=== PATIENT | female | born 1930 | race Caucasian/White ===

== ENCOUNTER 2016-07-11 20:16 | Observation (INO) | payer OTHER, MEDICARE ==
[~2016-07-11] VITALS: Ht 162.6 cm; Wt 121.1 kg
--- NOTE | 2016-07-11 21:26 | DIAGNOSTIC IMAGING REPORT ---
PROCEDURE: XR SHOULDER 2 OR MORE VW-RIGHT INDICATION: Fall injury, initial encounter TECHNIQUE: Two views COMPARISON: None. FINDINGS: Dislocation of the humeral head anteriorly and inferiorly with Hill-Sachs deformity. No evidence of a fracture. Moderate AC joint degenerative changes. IMPRESSION: 1. Right glenohumeral joint anterior dislocation with Hill-Sachs deformity
--- NOTE | 2016-07-11 22:44 | DIAGNOSTIC IMAGING REPORT ---
PROCEDURE: XR SHOULDER 2 OR MORE VW-RIGHT INDICATION: POST REDUCTION TECHNIQUE: Two views COMPARISON: Right shoulder x-ray 07/11/2016 FINDINGS: No change in the right glenohumeral humeral joint anterior dislocation with Hill-Sachs deformity . Questionable small avulsion fracture of the glenoid versus artifact. Moderate AC joint degenerative changes. IMPRESSION: 1. No change in the right glenohumeral joint anterior dislocation with Hill-Sachs deformity 2. Glenoid avulsion fracture versus artifact
--- NOTE | 2016-07-11 23:14 | DIAGNOSTIC IMAGING REPORT ---
PROCEDURE: XR SHOULDER 2 OR MORE VW-RIGHT INDICATION: 2ND POST REDUCTION TECHNIQUE: Two-view COMPARISON: Right shoulder x-ray 07/11/2016 FINDINGS: Reduced right shoulder anterior dislocation with mild inferior subluxation of the humeral head. Hill-Sachs deformity. Moderate AC joint degenerative changes. IMPRESSION: 1. Reduced anterior right shoulder dislocation with mild residual subluxation 2. Hill-Sachs deformity
--- NOTE | 2016-07-12 00:03 | DIAGNOSTIC IMAGING REPORT ---
PROCEDURE: CT UPPER EXT W/O CONT - RIGHT INDICATION: Recent shoulder dislocation TECHNIQUE: Axial scans with coronal and sagittal re-formations COMPARISON: Right shoulder x-rays 07/11/2016 FINDINGS: Reduced right glenohumeral joint shoulder dislocation with Hill-Sachs deformity. [place] fracture of the glenoid. A 5 mm avulsion fracture of the glenoid posteriorly, probably chronic. Moderate glenohumeral and AC joint degenerative changes. Soft tissues are unremarkable. IMPRESSION: 1. Reduced right glenohumeral joint dislocation with Hill-Sachs deformity 2. [place] fracture of the glenoid and 5 mm a avulsion fracture of the glenoid posteriorly, probably chronic. 3. Moderate AC and glenohumeral joint degenerative changes. 4. Results discussed with Dr. Aldrich
--- NOTE | 2016-07-12 01:58 | Progress Note ---
Subjective General Medical Consultation Patient Name: Va Pisano Admission Date: July 12, 2016 Primary Care Provider: Varghese Kimbrough M.D. Attending Physician: Clemente Lemos M.D. Consulting Physician: Godfrey Casey M.D. SUBJECTIVE Historian: Emergency department records, patient Reliability: Fair Chief Complaint: Fall, right shoulder injury History of Present Illness: The patient is a 85-year-old white female with a significant past medical history of hypertension, type 2 diabetes mellitus, hyperlipidemia, who presented to [facility] emergency room on the day prior to admission secondary to fall with injury to right side/shoulder. [facility] ER evaluation was consistent with fall with right-sided trauma and associated right shoulder dislocation. The patient underwent reduction of the right shoulder dislocation in the emergency department and was subsequently admitted by Dr. Gibran Benjamin for further evaluation and treatment. Hospitalist team was consulted for management of diabetes mellitus, hypertension, hyperlipidemia. PAST MEDICAL HISTORY Illnesses: 1. Hypertension 2. Hyperlipidemia 3. Diabetes mellitus type 2 4. Diabetic neuropathy Allergies: 1. No Known Drug Allergies Medications: 1. Atenolol 50 mg 1 by mouth daily 2. Lisinopril 20 mg by mouth twice a day 3. Glimepiride 2 mg by mouth daily 4. Lyrica 150 mg by mouth twice a day 5. Zocor 20 mg by mouth daily 6. Cozaar 100 mg by mouth daily Surgery: 1. Tonsillectomy Injuries: 1. No significant Hospitalizations: 1. For above surgery and medical problems Physical Exam Vital Signs / I&Os Vital Signs Date Time Temp Pulse Resp B/P Pulse O2 O2 Flow FiO2 Ox Delivery Rate 07/115 2.0 07/11 2204 2.0 General Appearance Alert, Oriented X3, Cooperative, No acute distress Lungs Clear to auscultation Cardiovascular Regular rate and rhythm, Normal S1 and S2 Abdomen Normal bowel sounds, Soft, No tenderness Extremities pain with right shoulder movement. Psych/Mental Status Mental status normal, Mood normal LAB Results Laboratory Tests 07/11 07/11 07/11 2341 5 2115 Chemistry Plasma Sodium (136 - 145 mmol/L) 143 Plasma Potassium (3.5 - 5.1 mmol/L) 4.5 Plasma Chloride (98 - 107 mmol/L) 109 CO2 (Enzymatic) (21 - 32 mmol/L) 28 BUN (7 - 18 mg/dL) 41 Creatinine (0.6 - 1.3 mg/dL) 1.6 Est GFR ( Amer) (mL/min) 39.65 Est GFR (Non-Af Amer) (mL/min) 32.72 Glucose (70 - 110 mg/dL) 247 Plasma Calcium (8.5 - 10.1 mg/dL) 8.7 Total Bilirubin (0.0 - 1.0 mg/dL) 0.2 AST (15 - 37 U/L) 15 ALT (12 - 78 U/L) 24 Alkaline Phosphatase (46 - 116 U/L) 70 Creatine Kinase (24 - 260 U/L) 88 Troponin (0.00 - 1.5 ng/mL) <0.05 B-Natriuretic Peptide (5 - 100 pg/ml) 87.6 Total Protein (6.4 - 8.2 g/dL) 7.0 Albumin (3.3 - 5.0 g/dL) 3.3 Hematology WBC (4.5 - 11.5 K/uL) 14.5 RBC (4.00 - 5.20 M/uL) 4.40 Hgb (12.0 - 16.0 gm/dL) 12.2 Hct (36.0 - 46.0 %) 38.9 MCV (80 - 100 fL) 88 MCH (26 - 34 pg) 28 RDW (11.6 - 14.8 %) 14.7 Gran % (53 - 90) 82.6 Lymph % (Auto) (25 - 40 %) 15.2 [place] % (Auto) (3 - 14 %) 2.2 Plt Count, EDTA (150 - 400 K/uL) 168 PUBS MCHC (31 - 37 g/dL) [address] scan-right shoulder IMPRESSION: 1. Reduced right glenohumeral joint dislocation with Hill-Sachs deformity 2. [place] fracture of the glenoid and 5 mm a avulsion fracture of the glenoid posteriorly, probably chronic. 3. Moderate AC and glenohumeral joint degenerative changes. 4. Results discussed with Dr. Aldrich Dictated by: PATRICIA VERNON MD D: KEEGAN;07/12/16 0002 Assessment and Plan Problem List 1. Shoulder dislocation Status Acute Onset Date Unknown Plan -Follow per orthopedics -Status post reduction confirmed with CT scan 2. Diabetes mellitus Status Chronic Onset Date Unknown Plan -Patient with history of diabetes mellitus -Blood sugar mildly elevated. -Insulin sliding scale -Monitor -Check hemoglobin A1c in a.m. -Placed back on oral medications when taking well orally 3. Hypertension Status Chronic Onset Date Unknown Plan -Patient with history of hypertension -Continue outpatient medical regimen -Low-salt diet -Monitor 4. Hyperlipidemia Status Chronic Onset Date Unknown Plan -Patient with history of hyperlipidemia -Continue statin therapy with Lipitor 20 mg by mouth daily -Placed back on Zocor on discharge -Outpatient follow up with PCP Current status: Fair, improved Anticipated discharge date: Anticipated discharge per orthopedics Anticipated discharge placement: Home Patient care time: Time spent in chart review, patient interview, physical exam, CPOE, and care documentation: 45 minutes Visit to patient today: 1 Complexity of care: Moderate E&M Codes Inpatient Consult: EPF-Rodríguez/[id number] E&M Codes Inpatient Consult: EPF-[id number]
[2016-07-12] MEDS ORDERED: ATENOLOL50 MG PO (02:29)
[2016-07-12] MEDS ORDERED: AMARYL1 MG PO (02:29)
[2016-07-12] MEDS ORDERED: LYRICA150 MG PO (02:30)
[2016-07-12] MEDS ORDERED: LISINOPRIL10 MG PO (02:30)
[2016-07-12] MEDS ORDERED: ATORVASTATIN CA10 MG PO (02:31)
[2016-07-12] MEDS ORDERED: COZAAR25 MG PO (02:31)
[2016-07-12 02:59] VITALS: BP 122/52
--- NOTE | 2016-07-12 03:16 | ED NURSING NOTES ---
Clinical Report - Nurses [facility] [address] [place] [address] 07/11/2016 20:17 [facility]: [id number] TRIAGE Triage time 2004. Acuity: LEVEL 3. Chief Complaint: FALL (slipped on wet floor in bathroom c/o right shoulder pain , and pain to buttocks from fall). 20:05. MELANIE COMA SCORE: Harris Coma Scale: 15- eyes open spontaneously (4); best verbal response- oriented x 4 (5); best motor response- obeys commands (6). --20:24 Jazmine Segal R.N. 20:05 07/11/16. BP: 151/56. HR: 116. RR: 26. O2 saturation: 99%. Temp: 98.1 F. Pain level now: 03/09. --20:24 Jazmine Segal R.N. Weight: 113.3 kg stated. Height/Length: 64 inches Per Patient. BMI: 42.9. --20:19 Jazmine Segal R.N. Medications Atenolol Oral 50 mg, daily. Glimepiride Oral (Tablet 2 mg) 1 tablet, daily. Lisinopril Oral (Tablet 20 mg) 1 tablet, 2x a day. Lyrica Oral (Capsule 150 mg) 1 capsule, 2xdaily. --20:27 Jazmine Segal R.N. Atorvastatin Calcium Oral. Losartan Potassium Oral. --20:28 Jazmine Segal R.N. Allergies No Known Drug Allergy. --20:27 Jazmine Segal R.N. History Arrived by EMS. Historian: patient. Accompanied by spouse. [facility] Location of injuries: right shoulder. This occurred (1800). ( also fell about 3 days ago). No loss of consciousness. PAST MEDICAL HX: Diabetes mellitus. Hypertension. SURGERY HX: Right and left knee surgery. Knee prosthesis. SOCIAL HX: Never smoker. No alcohol use. --20:24 Jazmine Segal R.N. Interventions ID band on patient. To treatment room. --20:24 Jazmine Segal R.N. PHYSICAL ASSESSMENT 20:05. To room via stretcher. GENERAL / NEURO / PSYCH: Alert. Oriented X 4. Appears in distress. RESPIRATORY: Respirations not labored. CVS: Capillary refill less than 2 seconds. GI / : Abdomen soft. EXTREMITIES: Limited ROM present. Right shoulder: tenderness and swelling. Limited ROM. SKIN: Skin is warm and dry. BACK: Right buttock: tenderness. --20:24 Jazmine Segal R.N. NURSING PROGRESS NOTES 20:05. Cold pack applied. Extremity elevated. Reassurance given. Patient identifiers checked. Call light placed in reach. Side rails up. Bed placed in lowest position. Patient ready for evaluation- chart flagged. --20:23 Jazmine Segal R.N. 20:32. Patient transported to radiology by stretcher with tech. --20:37 Jazmine Segal R.N. 20:45. Patient returned from radiology by stretcher with tech. --21:23 Jazmine Segal R.N. 21:10 07/11/2016 Site #1 started via IV in the left antecubital space with an 20g angiocath; one attempt. Blood drawn: rainbow set. Labeled in the presence of the patient and sent to the lab. Saline lock flushed with 10 mL saline (done by KELLY Moseley). --21:24 Jazmine Segal R.N. 21:12 07/11/2016 Zofran (Ondansetron HCl) IVP 4 mg given over 1 minute(s) via site #1. IV patency established. IV site checked: no pain, redness, or swelling. IV flushed thoroughly pre- and post-medication administration. IVP given by RN. --21:26 Jazmine Segal R.N. 21:13 07/11/2016 Dilaudid (HYDROmorphone HCl PF) IVP 0.5 mg given over 1 minute(s) via site #1. IV patency established. IV site checked: no pain, redness, or swelling. IV flushed thoroughly pre- and post-medication administration. IVP given by RN. --21:25 Jazmine Segal R.N. 2120 pt vomited 300cc food product emesis. , additional nausea meds given . Dr. Aldrich in room to examine shoulder. --21:40 Jazmine Segal R.N. 21:23 07/11/2016 PHENERGAN (Promethazine HCl) IVP 12.5 mg given over 1 minute(s) via site #1. IV patency established. IV site checked: no pain, redness, or swelling. IV flushed thoroughly pre- and post-medication administration. IVP given by RN. --21:40 Jazmine Segal R.N. 22:00 07/11/16. BP: 106/33. HR: 51. RR: 14. O2 saturation: 97% on nasal cannula at 4 liters/minute. Temp: deferred. Pain level now: cannot qualify. --22:25 Jazmine Segal R.N. 22:05 07/11/16. BP: 96/63. HR: 47. RR: 14. O2 saturation: 98% on nasal cannula at 4 liters/minute. Pain level now: cannot qualify. --22:30 Jazmine Segal R.N. 22:15. ( daughter at bedside. waiting on x-ray for post-reduction films). --22:31 Jazmine Segal R.N. 22:20 07/11/16. BP: 107/33. HR: 51. RR: 14. O2 saturation: 97% on nasal cannula at 4 liters/minute. Temp: deferred. Pain level now: cannot qualify. Additional comments: pt still sitting upright with eyes closed, will respond to verbal stimuli , answers questions. asking for water . --22:32 Jazmine Segal R.N. 22:23. ( Port x-ray here for post reduction film). --22:33 Jazmine Segal R.N. 22:30. Care transferred and report given (KELLY Tam). --22:33 Jazmine Segal R.N. 23:30 07/11/16. Patient transported to CT by stretcher with tech. --23:41 Inderbitzen, Bárbara, R.N. 23:42 07/11/16. ( Monitored sedation procedure completed x 2, 1st by ED ATHIR Lucero, 2nd by Dr Alva, anesthesia. Please see appropriate flowsheets and anesthesia record for vital data.). --23:42 Bárbara Cox R.N. 23:58 07/11/16. Patient returned from CT by stretcher with nurse. --23:58 Bárbara Cox R.N. EKG time: (33). EKG was ordered, performed by a tech and shown to the ED physician. --00:36 Natalie Sparks 01:02 07/12/16. Care transferred and report given (to TAHIR Broussard). --01:02 Bárbara Cox R.N. ( PATIENT GIVEN H+P FORM). --01:23 Pato Garcia, ER College Rec[employer]iter. Procedural Sedation Flowsheet 21:50. Diagnosis: dislocated joint, left shoulder. Procedure: reduction of orthopedic injury. Procedure performed by ED physician and assisted by one nurse and PA (Meet POWERS, assit by Dianne SOLIMAN). Allergies/reactions: and NKDA. ASA classification: 2 - patient with mild systemic disease. Patient / family education: explanation of procedure. Preparation: ID band on patient and consent obtained per patient; airway equipment, suction equipment, emergency cart and reversal agents at bedside; pulse oximeter, ekg monitor and NIBP placed on patient. Patient, with head of bed elevated. Time-out completed immediately before the procedure. (2149) Procedure start time: 2150 Procedure end time: 2152 Patient tolerated procedure well. (ERMD in to reduce shoulder, had pulled up fentanyl, but did not need to give this med since pt was very sleepy after phenergan.). --22:19 Jazmine Segal R.N. <<ALTA ENTRY-- 22:10 07/11/16. BP: 151/56. HR: 49. RR: 14. O2 saturation: 94% on nasal cannula at 2 liters/minute. Temp: deferred. Pain level now: 04/08. --22:19 Jazmine Segal R.N. --END STRIKE>> Wrong Value. --22:22 Jazmine Segal R.N. DISPOSITION / DISCHARGE Report was given to a nurse via a phone call. Report included patient's care, treatment, medications, reviewed medication reconcilliation, and condition (including any recent changes or anticipated changes). All questions were answered. Report was acknowledged. --02:22 Bobo Mazariegos R.N. ( sling placed). --02:24 Bobo Mazariegos R.N. 02:23 07/12/16. BP: 117/65. HR: 60. RR: 18. O2 saturation: 100%. Temp: 97.8 F. Pain level now 0/10. --02:24 Bobo Mazariegos R.N. Locked/Released at 07/12/2016 3:33 by Bobo Mazariegos R.N.
--- NOTE | 2016-07-12 03:16 | ED NURSING NOTES ---
Clinical Report - Nurses [facility] [address] [place] [address] 07/11/2016 20:17 [id number] Triage time 2004. Acuity: LEVEL 3. Chief Complaint: FALL (slipped on wet floor in bathroom c/o right shoulder pain , and pain to buttocks from fall). 20:05. MELANIE COMA SCORE: Renick Coma Scale: 15- eyes open spontaneously (4); best verbal response- oriented x 4 (5); best motor response- obeys commands (6). --20:24 Jazmine Segal R.N. 20:05 07/11/16. BP: 151/56. HR: 116. RR: 26. O2 saturation: 99%. Temp: 98.1 F. Pain level now: 03/09. --20:24 Jazmine Segal R.N. Weight: 113.3 kg stated. Height/Length: 64 inches Per Patient. BMI: 42.9. --20:19 Jazmine Segal R.N. Medications Atenolol Oral 50 mg, daily. Glimepiride Oral (Tablet 2 mg) 1 tablet, daily. Lisinopril Oral (Tablet 20 mg) 1 tablet, 2x a day. Lyrica Oral (Capsule 150 mg) 1 capsule, 2xdaily. --20:27 Jazmine Segal R.N. Atorvastatin Calcium Oral. Losartan Potassium Oral. --20:28 Jazmine Segal R.N. Allergies No Known Drug Allergy. --20:27 Jazmine Segal R.N. History Arrived by EMS. Historian: patient. Accompanied by spouse. [facility] Location of injuries: right shoulder. This occurred (1800). ( also fell about 3 days ago). No loss of consciousness. PAST MEDICAL HX: Diabetes mellitus. Hypertension. SURGERY HX: Right and left knee surgery. Knee prosthesis. SOCIAL HX: Never smoker. No alcohol use. --20:24 Jazmine Segal R.N. Interventions ID band on patient. To treatment room. --20:24 Jazmine Segal R.N. PHYSICAL ASSESSMENT 20:05. To room via stretcher. GENERAL / NEURO / PSYCH: Alert. Oriented X 4. Appears in distress. RESPIRATORY: Respirations not labored. CVS: Capillary refill less than 2 seconds. GI / : Abdomen soft. EXTREMITIES: Limited ROM present. Right shoulder: tenderness and swelling. Limited ROM. SKIN: Skin is warm and dry. BACK: Right buttock: tenderness. --20:24 Jazmine Segal R.N. NURSING PROGRESS NOTES 20:05. Cold pack applied. Extremity elevated. Reassurance given. Patient identifiers checked. Call light placed in reach. Side rails up. Bed placed in lowest position. Patient ready for evaluation- chart flagged. --20:23 Jazmine Segal R.N. 20:32. Patient transported to radiology by stretcher with tech. --20:37 Jazmine Segal R.N. 20:45. Patient returned from radiology by stretcher with tech. --21:23 Jazmine Segal R.N. 21:10 07/11/2016 Site #1 started via IV in the left antecubital space with an 20g angiocath; one attempt. Blood drawn: rainbow set. Labeled in the presence of the patient and sent to the lab. Saline lock flushed with 10 mL saline (done by KELLY Moseley). --21:24 Jazmine Segal R.N. 21:12 07/11/2016 Zofran (Ondansetron HCl) IVP 4 mg given over 1 minute(s) via site #1. IV patency established. IV site checked: no pain, redness, or swelling. IV flushed thoroughly pre- and post-medication administration. IVP given by RN. --21:26 Jazmine Segal R.N. 21:13 07/11/2016 Dilaudid (HYDROmorphone HCl PF) IVP 0.5 mg given over 1 minute(s) via site #1. IV patency established. IV site checked: no pain, redness, or swelling. IV flushed thoroughly pre- and post-medication administration. IVP given by RN. --21:25 Jazmine Segal R.N. 2120 pt vomited 300cc food product emesis. , additional nausea meds given . Dr. Aldrich in room to examine shoulder. --21:40 Jazmine Segal R.N. 21:23 07/11/2016 PHENERGAN (Promethazine HCl) IVP 12.5 mg given over 1 minute(s) via site #1. IV patency established. IV site checked: no pain, redness, or swelling. IV flushed thoroughly pre- and post-medication administration. IVP given by RN. --21:40 Jazmine Segal R.N. 22:00 07/11/16. BP: 106/33. HR: 51. RR: 14. O2 saturation: 97% on nasal cannula at 4 liters/minute. Temp: deferred. Pain level now: cannot qualify. --22:25 Jazmine Segal R.N. 22:05 07/11/16. BP: 96/63. HR: 47. RR: 14. O2 saturation: 98% on nasal cannula at 4 liters/minute. Pain level now: cannot qualify. --22:30 Jazmine Segal R.N. 22:15. ( daughter at bedside. waiting on x-ray for post-reduction films). --22:31 Jazmine Segal R.N. 22:20 07/11/16. BP: 107/33. HR: 51. RR: 14. O2 saturation: 97% on nasal cannula at 4 liters/minute. Temp: deferred. Pain level now: cannot qualify. Additional comments: pt still sitting upright with eyes closed, will respond to verbal stimuli , answers questions. asking for water . --22:32 Jazmine Segal R.N. 22:23. ( Port x-ray here for post reduction film). --22:33 Jazmine Segal R.N. 22:30. Care transferred and report given (KELLY Tam). --22:33 Jazmine Segal R.N. 23:30 07/11/16. Patient transported to CT by stretcher with tech. --23:41 Inderbitzen, Bárbara, R.N. 23:42 07/11/16. ( Monitored sedation procedure completed x 2, 1st by ED TAHIR Lucero, 2nd by Dr Alva, anesthesia. Please see appropriate flowsheets and anesthesia record for vital data.). --23:42 Bárbara Cox R.N. 23:58 07/11/16. Patient returned from CT by stretcher with nurse. --23:58 Bárbara Cox R.N. EKG time: (33). EKG was ordered, performed by a tech and shown to the ED physician. --00:36 Natalie Sparks 01:02 07/12/16. Care transferred and report given (to TAHIR Broussard). --01:02 Bárbara Cox R.N. ( PATIENT GIVEN H+P FORM). --01:23 Pato Garcia, ER Template Checker. Procedural Sedation Flowsheet 21:50. Diagnosis: dislocated joint, left shoulder. Procedure: reduction of orthopedic injury. Procedure performed by ED physician and assisted by one nurse and PA (Meet POWERS, assit by Dianne SOLIMAN). Allergies/reactions: and NKDA. ASA classification: 2 - patient with mild systemic disease. Patient / family education: explanation of procedure. Preparation: ID band on patient and consent obtained per patient; airway equipment, suction equipment, emergency cart and reversal agents at bedside; pulse oximeter, classroom monitor and NIBP placed on patient. Patient, with head of bed elevated. Time-out completed immediately before the procedure. (2149) Procedure start time: 2150 Procedure end time: 2152 Patient tolerated procedure well. (ERMD in to reduce shoulder, had pulled up fentanyl, but did not need to give this med since pt was very sleepy after phenergan.). --22:19 Jazmine Segal R.N. <<ALTA ENTRY-- 22:10 07/11/16. BP: 151/56. HR: 49. RR: 14. O2 saturation: 94% on nasal cannula at 2 liters/minute. Temp: deferred. Pain level now: 04/08. --22:19 Jazmine Segal R.N. --END STRIKE>> Wrong Value. --22:22 Jazmine Segal R.N. DISPOSITION / DISCHARGE Report was given to a nurse via a phone call. Report included patient's care, treatment, medications, reviewed medication reconcilliation, and condition (including any recent changes or anticipated changes). All questions were answered. Report was acknowledged. --02:22 Bobo Mazariegos R.N. ( sling placed). --02:24 Bobo Mazariegos R.N. 02:23 07/12/16. BP: 117/65. HR: 60. RR: 18. O2 saturation: 100%. Temp: 97.8 F. Pain level now 0/10. --02:24 Bobo Mazariegos R.N. Locked/Released at 07/12/2016 3:33 by Bobo Mazariegos R.N.
--- NOTE | 2016-07-12 03:16 | ED ORDER SUMMARY ---
..... Patient: GASTON GENAO OrderSheet [facility] VisitID: [id number] [place] [address] 85y, F Registration Date/Time: 07/11/2016 ORDER SHEET Weight: 113.3 kg (stated) Allergies: No Known Drug Allergy GENERAL ORDERS: Shoulder 2V or more Bilat Urgent (20:22 07/11/2016 DDean R.N. per protocol) (Ack 20:28 TBergley) (Cancelled: Other20:36 DDean R.N.) Shoulder 2V or more Right Urgent (20:36 07/11/2016 DDean R.N. per protocol) (Ack 20:38 TBergley) (21:23 MCampbell) Shoulder 2V or more Right Urgent (21:52 07/11/2016 CHagerty [facility] Behavioral Technician verbal order read back to EKoroleva P.A.-C) (Ack 21:55 TBergley) (22:34 DDean R.N.) Shoulder 2V or more Right Urgent (22:53 07/11/2016 CH[facility]ty ER Behavioral Technician verbal order read back to EKoroleva P.A.-C) (Ack 22:58 CHagerty ER Behavioral Technician) (23:57 RFay) CT Upp Ext wo Cont Right (Shoulder) Urgent (23:18 07/11/2016 CHagerty ER Behavioral Technician verbal order read back to Jasper GREENBERG) (Ack 23:20 CHagerty ER Behavioral Technician) (23:57 RFay) CBC w Diff Urgent (23:41 07/11/2016 EKoroleva P.A.-C) (Ack 23:43 CHagerty ER Behavioral Technician) (23:43 CHagerty ER Behavioral Technician) CMP Urgent (23:41 07/11/2016 EKoroleva P.A.-C) (Ack 23:43 CHagerty ER Behavioral Technician) (23:44 CHagerty ER Behavioral Technician) CPK Urgent (23:49 07/11/2016 Jasper GREENBERG) (Ack 23:51 CHagerty ER Behavioral Technician) (23:51 CHagerty ER Behavioral Technician) Troponin-I Urgent (23:49 07/11/2016 Jasper GREENBERG) (Ack 23:51 CHagerty ER Behavioral Technician) (23:51 CHagerty ER Behavioral Technician) UA-Culture if indicated Urgent (23:49 07/11/2016 Jasper GREENBERG) (Ack 23:51 CHagerty ER Behavioral Technician) (3:05 CHagerty ER Behavioral Technician) EKG - ER Stat (23:49 07/11/2016 Jasper GREENBERG) (Ack 23:51 CHagerty ER Behavioral Technician) (0:37 Benegekimapatrizia) - (SLING) (02:16 07/12/2016 Jasper GREENBERG) (3:05 CHagerty ER Behavioral Technician) MEDICATION ORDERS: Phenergan IV 12.5 mg (HIGH ALERT MEDICATION, NOW) (21:27 07/11/2016 EKoroleva P.A.-C) (21:40 DDean R.N.) IV FLUIDS: Dilaudid IV 0.5 mg (HIGH ALERT MEDICATION, NOW) (21:00 07/11/2016 EKoroleva P.A.-C) (21:25 DDean R.N.) IV Saline Lock (21:00 07/11/2016 EKoroleva P.A.-C) (21:25 DDean R.N.) Zofran IV 4 mg (NOW) (21:25 07/11/2016 DDean R.N. per protocol) (21:26 DDean R.N.) Fentanyl IV 50 mcg (may repeat prn procedure additional 50 mcg x 1 , total 100 mcg) (21:37 07/11/2016 EKoroleva P.A.-C) (Ack 21:40 DDean R.N.) (Cancelled: Other- pt didn't need, was sleepy after phenergan 22:12 DDean R.N.) Fentanyl IV 100 mcg (will be administered as needed during procedure) (22:34 07/11/2016 EKoroleva P.A.-C) (Cancelled: Physician Order23:24 Simbazen R.N.) ORDER SHEET NOTES: [Electronically signed by Bobo Mazariegos R.N. (03:33 07/12/2016)] [Electronically signed by Meet Aldrich MD (05:49 07/12/2016)] [Electronically signed by Rina Carranza P.A.-C (14:21 07/15/2016)] [Electronically locked/signed by Bobo Mazariegos R.N. (03:33 07/12/2016)]
--- NOTE | 2016-07-12 03:16 | ED CLINICAL REPORT ---
Clinical Report - Physicians/Mid Levels [facility] [address] [place] [address] 07/11/2016 20:17 Patient: GASTON GENAO Time Seen: 20:41 Jul 11 2016. Arrived- By private vehicle. Historian- patient. HISTORY OF PRESENT ILLNESS Location of injuries- right shoulder. Chief Complaint: FALL. The injury occurred just prior to arrival. Occurred at home. ( See also Dianne Teran's chart). Fell. No fainting episodes. The patient complains of severe pain. No blow to the head, neck pain or loss of consciousness. Not dazed. (Just prior to arrival slipped on wet floor in the bathroom fall in her right shoulder. She denies any shortness of breath or chest pain, or any preceding symptoms, denied any headache or dizziness. Denies any headache or neck pain or back pain post-incident. Reports pain with movement of shoulder, unable to do so, no paresthesias.). REVIEW OF SYSTEMS No loss of vision, hearing loss or abdominal pain. All systems otherwise negative, except as recorded above. PAST HISTORY Illness: DM, Hypertension, Dyslipidemia. SURGERY Right and left knee surgery. Knee prosthesis. Problems: Hypertension. Diabetes Mellitus. Abrasion(s). Contusion. Tetanus Status. Immunizations. Hypercholesterolemia. Additional Surgeries: Knee Prosthesis. Knee Surgery. Tonsillectomy. Medications: Atorvastatin Calcium Oral. Losartan Potassium Oral. Atenolol Oral 50 mg, daily. Glimepiride Oral (Tablet 2 mg) 1 tablet, daily. Lisinopril Oral (Tablet 20 mg) 1 tablet, 2x a day. Lyrica Oral (Capsule 150 mg) 1 capsule, 2xdaily. Allergies: No Known Drug Allergy. SOCIAL HISTORY Never smoker. No alcohol use or drug use. ADDITIONAL NOTES The nursing notes have been reviewed. PHYSICAL EXAM Vital Signs: 07/11/2016 20:05 BP: 151/56. HR: 116. RR: 26. O2 saturation: 99%. Temp: 98.1 F. Pain level now: 9/10. Appearance: Alert. No acute distress. No backboard or C-collar. Head: Head non-tender. No swelling of head. Eyes: Pupils equal, round and reactive to light. EOM intact. No abnormal funduscopic findings. No ocular injury. Neck: No decreased ROM in the neck. Non-tender. No vertebral tenderness. Posterior neck: No tenderness or laceration. CVS: Heart sounds normal. Pulses normal. Respiratory: Breath sounds normal. Chest nontender. Abdomen: No visible injury. Soft. Bowel sounds normal. No abdominal tenderness. Back: No tenderness. ROM normal. No tenderness or vertebral point tenderness. Skin: Skin intact. Skin warm. Extremities: Right shoulder: deformity consistent with a shoulder dislocation and moderate tenderness located in the anterior aspect of the shoulder. No abrasion, ecchymosis or puncture wound. Right elbow. No tenderness or swelling. Right wrist. No tenderness or swelling. Pelvis stable. Neuro: [place] Coma Scale: 15- eyes open spontaneously (4); best verbal response- oriented x 3 (5); best motor response- obeys commands (6). Oriented X 3. LABS, X-RAYS, AND EKG EKG: No acute process. Rate: 55. Normal P waves. Normal KAUR. Normal QRS complex. Normal axis. T wave inversion in lead III. Rt Shoulder X-ray: (First: IMPRESSION: 1. Right glenohumeral joint anterior dislocation with Hill-Sachs deformity Electronically Final signed by:Junaid Newman MD 07/11/2016 9:26:22 PM Second IMPRESSION: 1. No change in the right glenohumeral joint anterior dislocation with Hill-Sachs deformity 2. Glenoid avulsion fracture versus artifact Electronically Final signed by:Junaid Newman MD 07/11/2016 10:44:31 PM). Laboratory Tests: CBC w Diff: (JHOANA: 07/11/2016 21:15) ( MsgRcvd 07/11/2016 23:47) Final results Test Result Flag Units (Reference) WHITE BLOOD COUNT 14.5 H K/uL (4.5-11.5) RED BLOOD COUNT 4.40 M/uL (4.00-5.20) HEMOGLOBIN 12.2 gm/dL (12.0-16.0) HEMATOCRIT 38.9 % (36.0-46.0) MEAN CELL VOLUME 88 fL (80-100) MEAN CORPUSCULAR HGB 28 pg (26-34) MEAN CORPUSCULAR HGB CONC 31 g/dL (31-37) RED CELL DISTRIBUTION WIDTH 14.7 % (11.6-14.8) PLATELET COUNT 168 K/uL (150-400) LYMPH % 15.2 L % (25-40) MONO % 2.2 L % (3-14) GRANULOCYTE % 82.6 (53-90) BNP: (JHOANA: 07/11/2016 23:41) ( [facility] 07/12/2016 01:26) Final results Test Result Flag Units (Reference) B-TYPE NATRIURETIC PEPTIDE 87.6 pg/ml (5-100) CPK: (JHOANA: 07/11/2016 21:15) ( [facility] 07/12/2016 00:47) Final results Test Result Flag Units (Reference) CPK 88 U/L (24-260) TROPONIN I <0.05 ng/mL (0.00-1.5) TROPONIN REFERENCE RANGE:<0.1 NEGATIVE0.1-1.5 INDETERMINANT>1.5 POSITIVE CMP: (JHOANA: 07/11/2016 21:15) ( [facility] 07/11/2016 23:57) Final results Test Result Flag Units (Reference) GLUCOSE 247 H mg/dL (70-110) BUN 41 H mg/dL (7-18) CREATININE 1.6 H mg/dL (0.6-1.3) Estimated GFR 32.72 mL/min Estimated GFR- 39.65 mL/min Note: Persistent reduction over 3 months in eGFR<60 mL/min/1.73 m2 defines CKD. Patients with eGFR values>=60 mL/min/1.73 m2 may also have CKD if evidence ofpersistent proteinuria. Additional information may be foundat www.kidney.org. SODIUM 143 mmol/L (136-145) POTASSIUM 4.5 mmol/L (3.5-5.1) CHLORIDE 109 H mmol/L (98-107) CARBON DIOXIDE 28 mmol/L (21-32) CALCIUM 8.7 mg/dL (8.5-10.1) TOTAL PROTEIN 7.0 g/dL (6.4-8.2) ALBUMIN 3.3 g/dL (3.3-5.0) BILIRUBIN, TOTAL 0.2 mg/dL (0.0-1.0) ALKALINE PHOSPHATASE 70 U/L (46-116) AST (SGOT) 15 U/L (15-37) ALT (SGPT) 24 U/L (12-78) . Note - Tests: (PROCEDURE: CT UPPER EXT W/O CONT - RIGHT INDICATION: Recent shoulder dislocation TECHNIQUE: Axial scans with coronal and sagittal re-formations COMPARISON: Right shoulder x-rays 07/11/2016 FINDINGS: Reduced right glenohumeral joint shoulder dislocation with Hill-Sachs deformity. [place] fracture of the glenoid. A 5 mm avulsion fracture of the glenoid posteriorly, probably chronic. Moderate glenohumeral and AC joint degenerative changes. Soft tissues are unremarkable. IMPRESSION: 1. Reduced right glenohumeral joint dislocation with Hill-Sachs deformity 2. [place] fracture of the glenoid and 5 mm a avulsion fracture of the glenoid posteriorly, probably chronic. 3. Moderate AC and glenohumeral joint degenerative changes. 4. Results discussed with Dr. Aldrich Electronically Final signed by:Junaid Newman MD 07/12/2016 12:03:15 AM). PROGRESS AND PROCEDURES Reduction of Dislocated Shoulder: The right shoulder was reduced using traction-countertraction technique and scapular manipulation technique. Reassessed post-procedure. Neurovascular status intact. Deltoid sensation normal. Exam indicated reduction. Shoulder immobilizer applied. (Initial reduction attempt with Dilaudid and phenergan using scapular rotation technique. This seemed successful but post procedure radiography showed persistent dislocation. Second attempt with anesthesia by Dr Alva using ketamine and propofol was done using traction and counter traction technique. The third films showed reduction with some subluxation.). Course of Care: pt given dilauidid 0.5 mg, and phenergan 12.5 mg iv, and was sleepy, thus with Dr. Aldrich, scapular manipulation, achieved reduction, post procedure xr shows no movement, second procedure with anesthesia, with traction/ retraction Discussed the patient with Dr Ovalles. My initial impression after the second attempt was persistent dislocation. Discussion with Dr Newman indicates relocation with some subluxation. Because of the phernergan and other medication she was too sedated to safely discharge home. She is unsteady on her feet in an unmedicated state. Dr Benjamin is informed of the CT results and agrees to admit her with medicine consult for management of DM. I wrote admission orders and spoke with Dr Casey. The patient was seen with Dianne Teran who did the early documentation and management until the time of reduction attempts. Patient is stable. Physical exam findings are improved. Symptoms better. Patient/family counseled. Disposition orders written. Disposition: Admitted. CLINICAL IMPRESSION GROUND LEVEL FALL ANTERIOR DISLOCATION OF L SHOULDER HISTORY OF PROCEDURAL SEDATION HISTORY OF DM, HYPERTENSION AND DYSLIPIDEMIA. (Electronically signed by Meet Aldrich MD 07/12/2016 5:49) Time Seen: 20:41 Jul 11 2016. Arrived- By private vehicle. Historian- patient. HISTORY OF PRESENT ILLNESS Chief Complaint: FALL. Location of injuries- right shoulder. The injury occurred just prior to arrival. Occurred at home. Fell. No fainting episodes. The patient complains of severe pain. No blow to the head, neck pain or loss of consciousness. Not dazed. (Just prior to arrival slipped on wet floor in the bathroom fall in her right shoulder. She denies any shortness of breath or chest pain, or any preceding symptoms, denied any headache or dizziness. Denies any headache or neck pain or back pain post-incident. Reports pain with movement of shoulder, unable to do so, no paresthesias.). REVIEW OF SYSTEMS No loss of vision, hearing loss or abdominal pain. All systems otherwise negative, except as recorded above. PAST HISTORY RHD. Problems: Hypertension. Diabetes Mellitus. Abrasion(s). Contusion. Tetanus Status. Immunizations. Hypercholesterolemia. Additional Surgeries: Knee Prosthesis. Knee Surgery. Tonsillectomy. Medications: Atorvastatin Calcium Oral. Losartan Potassium Oral. Atenolol Oral 50 mg, daily. Glimepiride Oral (Tablet 2 mg) 1 tablet, daily. Lisinopril Oral (Tablet 20 mg) 1 tablet, 2x a day. Lyrica Oral (Capsule 150 mg) 1 capsule, 2xdaily. Allergies: No Known Drug Allergy. SOCIAL HISTORY Never smoker. No alcohol use or drug use. ADDITIONAL NOTES The nursing notes have been reviewed. PHYSICAL EXAM Vital Signs: 07/11/2016 20:05 BP: 151/56. HR: 116. RR: 26. O2 saturation: 99%. Temp: 98.1 F. Pain level now: 9/10. Appearance: Alert. No acute distress. No backboard or C-collar. Head: Head non-tender. No swelling of head. Eyes: Pupils equal, round and reactive to light. EOM intact. No abnormal funduscopic findings. No ocular injury. Neck: No decreased ROM in the neck. Non-tender. No vertebral tenderness. Posterior neck: No tenderness or laceration. CVS: Heart sounds normal. Pulses normal. Respiratory: Breath sounds normal. Chest nontender. Abdomen: No visible injury. Soft. Bowel sounds normal. No abdominal tenderness. Back: No tenderness. ROM normal. No tenderness or vertebral point tenderness. Skin: Skin intact. Skin warm. Extremities: Right shoulder: deformity consistent with a shoulder dislocation and moderate tenderness located in the anterior aspect of the shoulder. No abrasion, ecchymosis or puncture wound. Right elbow. No tenderness or swelling. Right wrist. No tenderness or swelling. Pelvis stable. Neuro: [place] Coma Scale: 15- eyes open spontaneously (4); best verbal response- oriented x 3 (5); best motor response- obeys commands (6). Oriented X 3. LABS, X-RAYS, AND EKG Rt Shoulder X-ray: (First: IMPRESSION: 1. Right glenohumeral joint anterior dislocation with Hill-Sachs deformity Electronically Final signed by:Junaid Newman MD 07/11/2016 9:26:22 PM Second IMPRESSION: 1. No change in the right glenohumeral joint anterior dislocation with Hill-Sachs deformity 2. Glenoid avulsion fracture versus artifact Electronically Final signed by:Junaid Newman MD 07/11/2016 10:44:31 PM). PROGRESS AND PROCEDURES Course of Care: pt given dilauidid 0.5 mg, and phenergan 12.5 mg iv, and was sleepy, thus with Dr. Aldrich, scapular manipulation, achieved reduction, post procedure xr shows no movement, second procedure with anesthesia, with traction/ retraction , That her outcome, please see Dr. Valdemar tucker for further irritation, and patient disposition is end of shift as well as procedural sedation as completed with Dr. Alva. Patient is stable. Physical exam findings are improved. Symptoms better. Patient/family counseled. Disposition: Admitted. CLINICAL IMPRESSION Left Shoulder Dislocation. (Electronically signed by Rina Carranza P.A.-C 07/15/2016 14:21)
[2016-07-12 07:34] VITALS: BP 135/68
--- NOTE | 2016-07-12 10:14 | Progress Note ---
Subjective General History and Physical Examination Patient Name: Va Pisnao Admission Date: July 12, 2016 Primary Care Provider: Varghese Kimbrough M.D. Attending Physician: Clemente Lemos M.D. Consulting Physician: Godfrey Casey M.D. SUBJECTIVE Historian: Emergency department records, patient Reliability: Fair Chief Complaint: Fall, right shoulder injury History of Present Illness: The patient is a 85-year-old white female with a significant past medical history of hypertension, type 2 diabetes mellitus, hyperlipidemia, who presented to [facility] emergency room on the day prior to admission secondary to fall with injury to right side/shoulder. [facility] ER evaluation was consistent with fall with right-sided trauma and associated right shoulder dislocation. The patient underwent reduction of the right shoulder dislocation in the emergency department and was subsequently admitted by Dr. Gibran Benjamin for further evaluation and treatment. Hospitalist team was consulted for management of diabetes mellitus, hypertension, hyperlipidemia. PAST MEDICAL HISTORY Illnesses: 1. Hypertension 2. Hyperlipidemia 3. Diabetes mellitus type 2 4. Diabetic neuropathy Allergies: 1. No Known Drug Allergies Medications: 1. Atenolol 50 mg 1 by mouth daily 2. Lisinopril 20 mg by mouth twice a day 3. Glimepiride 2 mg by mouth daily 4. Lyrica 150 mg by mouth twice a day 5. Zocor 20 mg by mouth daily 6. Cozaar 100 mg by mouth daily Surgery: 1. Knee Prosthesis. 2. Knee Surgery. 3. Tonsillectomy. Injuries: 1. No significant Hospitalizations: 1. For above surgery and medical problems FAMILY HISTORY Noncontributory SOCIAL HISTORY 1. Marital Status: 2. Roman Catholic: Yaz[employer]ism HABITS 1. Tobacco: None 2. Drugs: None 3. Alcohol: None HEALTH SUPERVISION Item/Test 1. Not reviewed IMMUNIZATIONS: 1. Not reviewed. REVIEW OF SYSTEMS Remarkable for those things stated in the history of present illness and past medical history. Seventeen point review of system completed with the following notable findings: No significant Physical Exam Vital Signs / I&Os Vital Signs Date Time Temp Pulse Resp B/P Pulse O2 O2 Flow FiO2 Ox Delivery Rate 07/12 0952 50 07/12 0734 98.1 56 22 135/68 97 Room Air 0.0 07/12 0315 Room Air 07/12 0259 97.7 54 18 122/52 100 Room Air 07/115 2.0 07/11 2205 2.0 General Appearance Alert, Oriented X3, Cooperative, No acute distress HEENT Normal exam Lungs Clear to auscultation, Normal air movement Neck Supple, No JVD Cardiovascular Regular rate and rhythm, Normal S1 and S2 Abdomen Normal bowel sounds, Soft, No tenderness, No guarding Extremities No cyanosis, No clubbing, No edema, (R) arm in sling Neurological Cranial nerves intact, Strength 5/5 x4 ext's, No lateralizing signs Psych/Mental Status Mental status normal, Mood normal LAB Results Laboratory Tests 07/12 07/11 07/11 07/11 0830 2341 2115 2115 Chemistry Plasma Sodium (136 - 145 mmol/L) 140 143 Plasma Potassium (3.5 - 5.1 mmol/L) 4.9 4.5 Plasma Chloride (98 - 107 mmol/L) 107 109 CO2 (Enzymatic) (21 - 32 mmol/L) 26 28 BUN (7 - 18 mg/dL) 35 41 Creatinine (0.6 - 1.3 mg/dL) 1.4 1.6 Est GFR ( Amer) (mL/min) 46.26 39.65 Est GFR (Non-Af Amer) (mL/min) 38.17 32.72 Glucose (70 - 110 mg/dL) 149 247 Plasma Calcium (8.5 - 10.1 mg/dL) 8.3 8.7 Total Bilirubin (0.0 - 1.0 mg/dL) 0.2 AST (15 - 37 U/L) 15 ALT (12 - 78 U/L) 24 Alkaline Phosphatase (46 - 116 U/L) 70 Creatine Kinase (24 - 260 U/L) 88 Troponin (0.00 - 1.5 ng/mL) <0.05 B-Natriuretic Peptide (5 - 100 pg/ml) 87.6 Total Protein (6.4 - 8.2 g/dL) 7.0 Albumin (3.3 - 5.0 g/dL) 3.3 Hematology WBC (4.5 - 11.5 K/uL) 15.2 14.5 RBC (4.00 - 5.20 M/uL) 4.40 4.40 Hgb (12.0 - 16.0 gm/dL) 12.5 12.2 Hct (36.0 - 46.0 %) 38.9 38.9 MCV (80 - 100 fL) 88 88 MCH (26 - 34 pg) 28 28 RDW (11.6 - 14.8 %) 14.1 14.7 Gran % (53 - 90) 82.6 Neut % (Auto) (50 - 75 %) 76.0 Lymph % (Auto) (25 - 40 %) 18.9 15.2 [place] % (Auto) (3 - 14 %) 4.3 2.2 Eos % (Auto) (0 - 4 %) 0.4 Baso % (Auto) (0 - 2 %) 0.4 Plt Count, EDTA (150 - 400 K/uL) 157 168 PUBS MCHC (31 - 37 g/dL) [address] (R) shoulder IMPRESSION: 1. Reduced right glenohumeral joint dislocation with Hill-Sachs deformity 2. [place] fracture of the glenoid and 5 mm a avulsion fracture of the glenoid posteriorly, probably chronic. 3. Moderate AC and glenohumeral joint degenerative changes. 4. Results discussed with Dr. Aldrich Dictated by: PATRICIA VERNON MD D: KEEGAN;07/12/16 0002 Assessment and Plan Problem List 1. Shoulder dislocation Status Acute Onset Date Unknown Plan -Follow per orthopedics -Status post reduction confirmed with CT scan -Discharge in am per orthopedics recommendations. 2. Diabetes mellitus Status Chronic Onset Date Unknown Plan -Patient with history of diabetes mellitus -Blood sugar mildly elevated. -Insulin sliding scale -Monitor -Check hemoglobin A1c in a.m. -Placed back on oral medications when taking well orally 3. Hypertension Status Chronic Onset Date Unknown Plan -Patient with history of hypertension -Continue outpatient medical regimen -Low-salt diet -Monitor -Will verify medications in am 4. Hyperlipidemia Status Chronic Onset Date Unknown Plan -Patient with history of hyperlipidemia -Continue statin therapy with Lipitor 20 mg by mouth daily -Placed back on Zocor on discharge -Outpatient follow up with PCP Current status: Fair, improved Anticipated discharge date: Anticipated discharge per orthopedics recommendations Anticipated discharge placement: Home Patient care time: Time spent in chart review, patient interview, physical exam, CPOE, and care documentation: 45 minutes Visit to patient today: 1 Complexity of care: Moderate E&M Codes Admission: Obsv-Comp/Moderate/[id number]
[2016-07-12 10:26] VITALS: BP 120/42
[2016-07-12] MEDS ORDERED: NORCO1 TA1 PO (11:07)
--- NOTE | 2016-07-12 11:08 | Provider's Discharge Care Plan ---
Problem, Goal, Plan Problem List 1. Shoulder dislocation 2. Diabetes mellitus 3. Hypertension 4. Hyperlipidemia 5. Shoulder dislocation 6. History of conscious sedation
--- NOTE | 2016-07-12 11:08 | Provider's Discharge Care Plan ---
Problem, Goal, Plan Problem List 1. Shoulder dislocation 2. Diabetes mellitus 3. Hypertension 4. Hyperlipidemia 5. Shoulder dislocation 6. History of conscious sedation
--- NOTE | 2016-07-12 19:38 | CONSULTATION REPORT ---
DATE OF CONSULTATION: 07/12/2016 CHIEF COMPLAINT: 1. Right shoulder pain HISTORY OF PRESENT ILLNESS: The patient suffered a fall yesterday, dislocated her right shoulder. She was seen in the emergency department and attempt was made with IV sedation to reduce the dislocation, which was unsuccessful, and then the patient willing to have anesthesiologist come in and give a formal anesthesia. Successful reduction was accomplished; however, the patient was markedly sedated afterwards and the emergency department physician felt it best that she be admitted to the hospital for observation and so she was and I came and saw her this morning. MEDICAL/SURGICAL HISTORY: MEDICATIONS: 1. ALLERGIES: 1. SOCIAL HISTORY: FAMILY HISTORY: REVIEW OF SYSTEMS: PHYSICAL EXAMINATION: EXTREMITIES: At that point, she had intact light touch sensation in the median, ulnar and radial nerve distribution distally. Had a 2+ radial pulse. There is minimal edema distally. She had no open wounds, erythema, warmth or drainage. The patient's sensation over the lateral side of the shoulder was intact and there was no apparent deformity. LAB/IMAGING: The CT scan was reviewed, which does not show any definite fracture. She does have a small Bankart lesion anteriorly and probably a small Hill-Sachs lesion in the posterior aspect of the humeral head as well, although it is very minimal, and she is clearly reduced. IMPRESSION/PLAN: 1. She is comfortable in an arm sling and at this time it is recommended that she use a sling until she is comfortable and that she should do no more than 1-2 pounds lifting, pushing, pulling, with the right arm to avoid external rotation of it, and we will see her back here in the clinic in about 2 weeks for a recheck. 2. She has also had some bouts of dizziness, lightheadedness and says she has fallen several times because of that. I was not sure if that was the reason why she fell yesterday, but it is a cause of concern and I recommended for that she be seen by her primary care physician next week versus 2 weeks as well just to have a complete evaluation, and she and her family agreed with that also. 3. Condition at this time is stable. She can be discharged to home. Again, we will use the arm sling until she is comfortable and she is walking, to remove it once she is. I did explain to her the likelihood of recurrent dislocation in this age group was low and more likely she will do well. I would like to follow her though and she may need to have physical therapy for range of motion of the shoulder. We will recheck her when she comes back to clinic.
--- NOTE | 2016-07-15 14:22 | ED MED RECONCILIATION SUMMARY ---
Patient: GASTON GENAO Medication Reconciliation Report [facility] VisitID: [id number] [address] [place] [address] 85y, F Registration Date/Time: 07/11/2016 Weight: 113.3 kg Height/Length: 64 in. BMI: 42.9 ALLERGIES: No Known Drug Allergy The patient's Home Medications are listed below: THE FOLLOWING MEDICATIONS NEED TO BE RECONCILED: Atenolol Oral 50 mg, daily Atorvastatin Calcium Oral Glimepiride Oral (2 mg) 1 tablet, daily Lisinopril Oral (20 mg) 1 tablet, 2x a day Losartan Potassium Oral Lyrica Oral (150 mg) 1 capsule, 2xdaily The source(s) of the original Home Medication information: Not obtained. The following Medications were given to the patient in the Emergency Department: Dilaudid [IVP] IVP 0.5 mg, administered: 07/11/2016 9:13:00 PM Zofran [IVP] IVP 4 mg, administered: 07/11/2016 9:12:00 PM PHENERGAN [IVP] IVP 12.5 mg, administered: 07/11/2016 9:23:00 PM The following Medications were prescribed to the patient: None.
--- NOTE | 2016-07-15 14:22 | ED MAR SUMMARY ---
..... Medication Administration Record [facility] [address] [place] [address] Patient: GASTON GENAO Visit ID: [id number] 85y, F Weight: 113.3 kg Height/Length: 64 in BMI: 42.9 ALLERGIES: No Known Drug Allergy Given :07/11/2016 Jazmine Segal R.N. Medication Administered: ZOFRAN [IVP] (ONDANSETRON HCL), Dose: 4 mg IVP over 1 minute(s), Site: #1 left AC. Medication Ordered: Zofran IV 4 mg (NOW). Given :07/11/2016 Jazmine Segal R.N. Medication Administered: DILAUDID [IVP] (HYDROMORPHONE HCL PF), Dose: 0.5 mg IVP over 1 minute(s), Site: #1 left AC. Medication Ordered: Dilaudid IV 0.5 mg (HIGH ALERT MEDICATION, NOW). Given 07/11/2016 Jazmine Segal R.N. Medication Administered: PHENERGAN [IVP] (PROMETHAZINE HCL), Dose: 12.5 mg IVP over 1 minute(s), Site: #1 left AC. Medication Ordered: Phenergan IV 12.5 mg (HIGH ALERT MEDICATION, NOW).
--- NOTE | 2016-07-15 14:22 | ED DISCHARGE INSTRUCTIONS ---
Patient: GASTON GENAO General Instructions [facility] VisitID: [id number] [address] [place] [address] 85y, F Registration Date/Time: 07/11/2016 GROUND LEVEL FALL ANTERIOR DISLOCATION OF L SHOULDER HISTORY OF PROCEDURAL SEDATION HISTORY OF DM, HYPERTENSION AND DYSLIPIDEMIA. (Electronically signed by Meet Aldrich MD 07/12/2016 5:49) Left Shoulder Dislocation. (Electronically signed by Rina Carranza P.A.-C 07/15/2016 14:21)
--- NOTE | 2016-07-15 14:22 | ED MED RECONCILIATION SUMMARY ---
Patient: GASTON GENAO Medication Reconciliation Report [facility] VisitID: [id number] [address] [place] [address] 85y, F Registration Date/Time: 07/11/2016 Weight: 113.3 kg Height/Length: 64 in. BMI: 42.9 ALLERGIES: No Known Drug Allergy The patient's Home Medications are listed below: THE FOLLOWING MEDICATIONS NEED TO BE RECONCILED: Atenolol Oral 50 mg, daily Atorvastatin Calcium Oral Glimepiride Oral (2 mg) 1 tablet, daily Lisinopril Oral (20 mg) 1 tablet, 2x a day Losartan Potassium Oral Lyrica Oral (150 mg) 1 capsule, 2xdaily The source(s) of the original Home Medication information: Not obtained. The following Medications were given to the patient in the Emergency Department: Dilaudid [IVP] IVP 0.5 mg, administered: 07/11/2016 9:13:00 PM Zofran [IVP] IVP 4 mg, administered: 07/11/2016 9:12:00 PM PHENERGAN [IVP] IVP 12.5 mg, administered: 07/11/2016 9:23:00 PM The following Medications were prescribed to the patient: None.
--- NOTE | 2016-07-15 14:22 | ED DISCHARGE INSTRUCTIONS ---
Patient: GASTON GENAO General Instructions [facility] VisitID: [id number] [address] [place] [address] 85y, F Registration Date/Time: 07/11/2016 GROUND LEVEL FALL ANTERIOR DISLOCATION OF L SHOULDER HISTORY OF PROCEDURAL SEDATION HISTORY OF DM, HYPERTENSION AND DYSLIPIDEMIA. (Electronically signed by Meet Aldrich MD 07/12/2016 5:49) Left Shoulder Dislocation. (Electronically signed by Rina Carranza P.A.-C 07/15/2016 14:21)
--- NOTE | 2016-07-15 14:22 | ED MAR SUMMARY ---
..... Medication Administration Record [facility] [address] [place] [address] Patient: GASTON GENAO Visit ID: [id number] 85y, F Weight: 113.3 kg Height/Length: 64 in BMI: 42.9 ALLERGIES: No Known Drug Allergy Given :07/11/2016 Jazmine Segal R.N. Medication Administered: ZOFRAN [IVP] (ONDANSETRON HCL), Dose: 4 mg IVP over 1 minute(s), Site: #1 left AC. Medication Ordered: Zofran IV 4 mg (NOW). Given :07/11/2016 Jazmine Segal R.N. Medication Administered: DILAUDID [IVP] (HYDROMORPHONE HCL PF), Dose: 0.5 mg IVP over 1 minute(s), Site: #1 left AC. Medication Ordered: Dilaudid IV 0.5 mg (HIGH ALERT MEDICATION, NOW). Given 07/11/2016 Jazmine Segal R.N. Medication Administered: PHENERGAN [IVP] (PROMETHAZINE HCL), Dose: 12.5 mg IVP over 1 minute(s), Site: #1 left AC. Medication Ordered: Phenergan IV 12.5 mg (HIGH ALERT MEDICATION, NOW).
== END 2016-07-12 14:00 | disposition home health service (06) ==
LOC: ED SRH 20:16 → TRANS SRH 07-12 00:27 → ACUTE2 SRH 07-12 00:27
PROVIDERS: ADMIT Orthopaedic Surgery
PROC: 0RSJXZZ Reposition Right Shoulder Joint, External Approach (ICD-10-PCS; principal; 2016-07-11)
DX: S43.014A Anterior dislocation of right humerus, initial encounter (principal); W01.0XXA Fall on same level from slipping, tripping and stumbling without subsequent striking against object, initial encounter; Y93.E8 Activity, other personal hygiene; Y92.002 Bathroom of unspecified non-institutional (private) residence as the place of occurrence of the external cause; Y99.8 Other external cause status; E11.40 Type 2 diabetes mellitus with diabetic neuropathy, unspecified; Z79.84 Long term (current) use of oral hypoglycemic drugs; I10 Essential (primary) hypertension; E78.5 Hyperlipidemia, unspecified

== ENCOUNTER 2016-10-16 12:51 | Outpatient (CLI) | payer OTHER, MEDICARE ==
[~2016-10-16 12:51] MED LIST: AMARYL1 MG PO; ATENOLOL50 MG PO; ATORVASTATIN CA10 MG PO; COZAAR25 MG PO; LISINOPRIL10 MG PO; LYRICA150 MG PO; NORCO1 TA1 PO
--- NOTE | 2016-10-16 16:01 | DIAGNOSTIC IMAGING REPORT ---
PROCEDURE: MR UPPER EXTREMITY W/O CONT-RT INDICATION: RT SHOULDER DISLOCATION TECHNIQUE: PD and FAT-SAT PD, axial, and coronal-oblique images. PD and STIR sagittal-oblique images. COMPARISON: Right shoulder CT scan with 06/15 and x-rays 07/11/2016. FINDINGS: Severe AC joint degenerative changes with inferior spurring and type 2 acromion resulting in impingement. Thickening and increased signal of the rotator cuff consistent with tendinosis. There is delamination with small intrasubstance partial thickness tears present. There is a rotator interval tear. There is a large subdeltoid and subacromial effusion consistent with bursitis. Complex superior and inferior labral tear with a 10 mm fragment arising from the glenoid inferiorly consistent with a chronic Bankart fracture. Hill-Sachs deformity. There is severe narrowing of the glenohumeral joint space with spur formation. Bone contusion of the glenoid, humeral head and neck of the humerus. Partial tear of the bicipital tendon. Small joint effusion with debris. Subscapularis muscle edema. IMPRESSION: 1. Impingement with rotator cuff tendinosis, rotator cuff delamination and small intrasubstance partial thickness tears 2. Rotator interval tear 3. Large subdeltoid and subacromial effusion consistent with bursitis 4. Complex labral tear 5. Hill-Sachs deformity and chronic Bankart fracture 6. Severe degenerative changes of the glenohumeral joint with bone contusions/edema of the glenoid, humeral head and neck of the humerus 7. Bicipital tendon partial tear 8. Small glenohumeral joint effusion with debris 9. Subscapularis muscle edema, possibly post-traumatic
== END 2016-10-16 23:00 ==
LOC: MRI SRH 12:51
DX: S43.431A Superior glenoid labrum lesion of right shoulder, initial encounter (principal); M75.101 Unspecified rotator cuff tear or rupture of right shoulder, not specified as traumatic; M75.51 Bursitis of right shoulder; M75.41 Impingement syndrome of right shoulder; S42.291A Other displaced fracture of upper end of right humerus, initial encounter for closed fracture; M19.011 Primary osteoarthritis, right shoulder